=== PATIENT | female | born 1985 | race Caucasian/White ===

== ENCOUNTER 2020-09-01 17:35 | Emergency (ER) | payer MEDICARE, MEDICAID, SELFPAY ==
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
[2020-09-01 17:54] VITALS: BP 118/70; BP 146/91; PULSE 100; PULSE 95; RESP 18; TEMP 36.3; O2SAT 97; O2SAT 99; BMI 29.5
[2020-09-01 18:01] LABS: Glucose, Whole Blood 85 mg/dL (60-115)
[2020-09-01] MEDS: Naloxone HCl 0.4 MG/ML VIAL IVPUSH ×2 (18:12→18:35)
[2020-09-01 18:13] LABS: MANUAL DIFF FLAG NO
[2020-09-01 18:14] LABS: Basophils Percent Auto 0.4 % (0-2); Eosinophils Absolute Auto 0.3 X10*3/uL (0.0-0.4); Eosinophils Percent Auto 3.6 % (0-4); Hematocrit 39.4 % (37-47); Hemoglobin 13.1 g/dl (12.0-16.0); Imm Gran Abs Auto 0.02 X10*3/uL (0.00-0.03); Imm Gran Pct Auto 0.3 % (0.0-0.4); Mean Corpuscular HGB Conc 33.2 g/dl (31.0-35.0); Mean Corpuscular Hemoglobin 30.2 pg (27.0-33.0); Mean Corpuscular Volume 90.8 fL (80-98); Mean Platelet Volume 9.3 fL (9.4-12.3); Monocytes Absolute Auto 0.7 X10*3/uL (0.1-1.2); Monocytes Percent Auto 9.8 % (2-11); Neutrophils Absolute Auto 4.2 X10*3/uL (2.0-8.3); Neutrophils Percent Auto 57.9 % (45-73); Platelet Count 276 X10*3/uL (160-400); Red Blood Count 4.34 X10*6/uL (4.20-5.50); Red Cell Distribution Width 13.1 % (11.0-16.0); White Blood Count 7.2 X10*3/uL (4.8-10.8)
[2020-09-01] MEDS: ondansetron HCL 4 MG/2 ML VIAL IVPUSH (18:35)
[2020-09-01 18:36] VITALS: BP 136/91; PULSE 95; RESP 18; O2SAT 94
[2020-09-01] MEDS: 0.9 % Sodium Chloride 1,000 ML 999 ML IVCONT (18:47)
[2020-09-01 19:42] VITALS: BP 101/73; PULSE 98; RESP 17; TEMP 36.7; O2SAT 94
[2020-09-01 20:00] VITALS: BP 100/59; PULSE 89; RESP 18; O2SAT 98
[2020-09-01 20:10] LABS: Ethanol < 10 mg/dL
[2020-09-01 20:23] LABS: Acetaminophen LAB < 1 mcg/mL (<30); Alanine Aminotransferase 55 U/L (0-31); Alkaline Phosphatase 87 U/L (39-117); Anion Gap 12 (12-20); Aspartate Amino Transferase 30 U/L (5-31); Bilirubin Direct < 0.2 mg/dL (0.0-0.5); Bilirubin Total 0.5 mg/dL (0.0-1.0); Blood Urea Nitrogen 11 mg/dL (9-16); Calcium 8.4 mg/dL (8.4-10.2); Carbon Dioxide 28 mmol/L (22-29); Chloride 105 mmol/L (96-108); Creatinine Clr Calc Pharmacy 109.7; Estimated Glomerular Filt Rate > 60; Glucose Random 109 mg/dL (60-115); Potassium 3.9 mmol/L (3.3-5.1); Salicylate < 5.0 mg/dL (15-30); Sodium 141 mmol/L (135-145); Total Protein 6.5 g/dL (6.5-8.0)
--- NOTE | 2020-09-01 20:56 | MHC.RECOVSUP ---
Opioid overdose o Current location: ED#18 o Identified substance use concern: Opioid - Overdose <del>-</del> <del>Withdrawal</del> <del>-</del> <del>Seeking</del> <del>ATS</del> <del>(detox)</del> - Support ? Intervention: <del>o</del> <del>ATS</del> <del>bed</del> <del>search</del> <del>started/completed/in</del> <del>process</del> <del>o</del> <del>MAT</del> <del>started</del> <del>or</del> <del>to</del> <del>be</del> <del>started</del> <del>o</del> <del>Community</del> <del>resources</del> <del>provided</del> <del>o</del> <del>Harm</del> <del>reduction</del> <del>discussion</del> ? Plan: <del>o</del> <del>Referral</del> <del>to</del> <del>[facility]</del> <del>o</del> <del>Bed</del> <del>search</del> <del>in</del> <del>progress</del> <del>to</del> <del>o</del> <del>Follow</del> <del>up</del> <del>tomorrow</del> <del>o</del> <del>Patient</del> <del>awaiting</del> <del>crisis</del> <del>evaluation</del> <del>o</del> <del>Patient</del> <del>to</del> <del>follow</del> <del>up</del> <del>with</del> <del>[facility]</del> <del>after</del> <del>discharge</del> ? Additional information: pt was brought in due to an overdose. I have tried making my way to engage in conversation with client but she has been too under the influence to engage in conversation. I have not been able to gather any information.
[2020-09-02] VITALS: BP 119/84; PULSE 90; RESP 18; TEMP 37.2; O2SAT 96
[2020-09-02 02:00] VITALS: RESP 20
[2020-09-02 03:18] LABS: Amphetamine Screen Urine POSITIVE (Not Detect); Barbiturates, Urine Not Detected (Not Detect); Benzodiazepines Screen Urine Not Detected (Not Detect); Cannabinoid Screen Urine POSITIVE (Not Detect); Cocaine Screen Urine Not Detected (Not Detect); Opiate Screen Urine Not Detected (Not Detect); Phencyclidine Screen Urine Not Detected (Not Detect)
== END 2020-09-02 04:56 | disposition home or self-care (01) ==
PROVIDERS: Physician Assistant; Emergency Provider Emergency Medicine
DX: T42.4X1A Poisoning by benzodiazepines, accidental (unintentional), initial encounter (principal); F19.29 Other psychoactive substance dependence with unspecified psychoactive substance-induced disorder; F41.1 Generalized anxiety disorder; F43.0 Acute stress reaction; Y92.810 Car as the place of occurrence of the external cause; Z79.899 Other long term (current) drug therapy
CPT/HCPCS: 36415; 80048; 80076; 80143; 80179; 80307; 80320; 82947; 85025; 96365; 96375; 96376; 99285; J2405